=== PATIENT | male | born 2000 ===

== ENCOUNTER 2020-05-25 21:12 | Emergency (ER) | payer OTHER | END 2020-05-25 22:36 | disposition left against medical advice (07) | LOC: ED 21:12 | DX: T63.301A Toxic effect of unspecified spider venom, accidental (unintentional), initial encounter (principal); Z53.21 Procedure and treatment not carried out due to patient leaving prior to being seen by health care provider; Y92.89 Other specified places as the place of occurrence of the external cause ==

== ENCOUNTER 2021-10-22 05:14 | Emergency (ER) | payer OTHER ==
[2021-10-22 05:37] VITALS: BP 120/86
[2021-10-22] MEDS ORDERED: IBUPROFEN 600 MG TAB PO ONE (15:49)
[2021-10-22] MEDS ORDERED: ACETAMINOPHEN 325 MG TAB PO ONE (15:49)
== END 2021-10-23 05:16 | disposition left against medical advice (07) ==
LOC: ED 05:14
DX: R53.1 Weakness (principal); R51.9 Headache, unspecified; M54.2 Cervicalgia; Z53.21 Procedure and treatment not carried out due to patient leaving prior to being seen by health care provider